=== PATIENT | female | born 1965 | race Caucasian/White ===

== ENCOUNTER 2023-09-29 20:04 | Emergency (ER) | payer MEDICAID, OTHER ==
[~2023-09-29] VITALS: Ht 165.1 cm; Wt 90.3 kg
[2023-09-29 20:52] LABS: BASO # 0.1 10^3/uL (0.0-0.2); BASO % 0.3 % (0.0-1.0); HEMATOCRIT 49.4 % (36.0-47.0); HEMOGLOBIN 16.5 g/dl (12.0-15.5); LYMPH # 0.9 10^3/uL (1.5-5.0); LYMPH % 3.5 % (24.0-44.0); MEAN CORPUSCULAR HEMOGLOBIN 31.4 pg (27.0-33.0); MEAN CORPUSCULAR HGB CONC 33.4 g/dl (32.0-36.5); MEAN CORPUSCULAR VOLUME 94.1 fl (80.0-96.0); MONO # 1.4 10^3/uL (0.0-0.8); NEUTROPHILS # 24.5 10^3/uL (1.5-8.5); NEUTROPHILS % 90.2 % (36.0-66.0); PLATELET COUNT, AUTOMATED 317 10^3/uL (150-450); RED BLOOD COUNT 5.25 10^6/uL (4.00-5.40); WHITE BLOOD COUNT 27.1 10^3/uL (4.0-10.0)
[2023-09-29 21:44] LABS: ABG BASE EXCESS -20.8 (-2.0-2.0); ABG HCO3 4.7 MMOL/L (22.0-26.0); ABG PARTIAL PRESSURE O2 170.6 mmHg (75.0-100.0); ABG STANDARD HCO3 10.3 MMOL/L. (22.0-26.0); ABG TOTAL CO2 5.1 MMOL/L (22.0-29.0)
[2023-09-29 21:44] LABS: INR 1.46; PARTIAL THROMBOPLASTIN TIME 23.2 SECONDS (24.8-34.2); PROTHROMBIN TIME 17.3 SECONDS (12.5-14.5)
[2023-09-29 21:47] LABS: ABG PARTIAL PRESSURE CO2 13.2 mmHg (35.0-45.0); ABG pH (ARTERIAL) 7.171 UNITS (7.350-7.450)
[2023-09-29] MEDS ORDERED: ISOVUE-370 76% 100ML VIAL As Ordered ONE (22:04)
[2023-09-29 22:25] LABS: CK-MB VALUE MASS 3.5 NG/ML (<3.6)
[2023-09-29 22:26] LABS: CPK CREATINE PHOSPHOKINASE 165 U/L (34-145); MB/CK RELATIVE INDEX 2.12 (< OR =4)
[2023-09-29 22:33] LABS: PROCALCITONIN 0.35 ng/ml
[2023-09-29 22:43] LABS: ALBUMIN 2.8 G/DL (3.2-5.2); ALKALINE PHOSPHATASE 112 U/L (46-116); ALT/SGPT 12 U/L (7.0-40); AST/SGOT < 8 U/L (<34); BILIRUBIN,DIRECT 0.2 MG/DL (<0.4); BILIRUBIN,TOTAL 0.6 MG/DL (0.3-1.2); BLOOD UREA NITROGEN 39 MG/DL (9-23); CALCIUM LEVEL 9.7 MG/DL (8.5-10.1); CARBON DIOXIDE LEVEL < 10.0 MMOL/L (20-31); CHLORIDE LEVEL 91 MMOL/L (98-107); CREATININE FOR GFR 1.06 MG/DL (0.55-1.30); GLOMERULAR FILTRATION RATE 56.5 (>51); GLUCOSE, FASTING 627 MG/DL (60-100); POTASSIUM SERUM 4.8 MMOL/L (3.5-5.1); SODIUM LEVEL 126 MMOL/L (136-145); TOTAL PROTEIN 7.8 G/DL (5.7-8.2)
[2023-09-29] MEDS ORDERED: HEPARIN SOD (PORCINE) 5000UNITS/ML 1ML VIAL/SYRINGE IV PRN (22:50)
[2023-09-29] MEDS: cefTRIAXone SOD 2 GM in D5W MINI-BAG PLUS 50 ML IV ONE (23:17)
[2023-09-29] MEDS: NS 1,000 ML IV ONE (23:17)
[2023-09-29] MEDS: HumuLIN R (REGULAR) INSULIN (NovoLIN R) **100U/ML** PER UNIT IV ONE (23:21)
[2023-09-29] MEDS: HEPARIN SOD (PORCINE) 5000UNITS/ML 1ML VIAL/SYRINGE IV ONE (23:28)
[2023-09-29] MEDS: HEPARIN DRIP 25,000 UNITS in IV 1 EA IV SCH (23:32)
[2023-09-29] MEDS ORDERED: INSULIN IV RATE CHANGE DOCUMENTATION ML/HR XX SCH (23:35)
[2023-09-29 23:50] LABS: CK-MB VALUE MASS 4.6 NG/ML (<3.6)
[2023-09-30 00:01] LABS: MB/CK RELATIVE INDEX 2.38 (< OR =4)
[2023-09-30] MEDS: INSULIN REGULAR IN 0.9 % NACL 100 UNIT in IV 1 EA IV SCH (00:08)
[2023-09-30 01:45] LABS: VENOUS BASE EXCESS -17.9 (-2.0-2.0); VENOUS HCO3 9.5 MMOL/L (23.0-27.0); VENOUS O2 SATURATION 73.8 % (60.0-80.0); VENOUS PARTIAL PRESSURE CO2 27.9 mmHg (38.0-50.0); VENOUS PARTIAL PRESSURE O2 42.3 mmHg (30.0-50.0); VENOUS PH 7.149 UNITS (7.330-7.430); VENOUS STANDARD HCO3 11.2 MMOL/L; VENOUS TOTAL CO2 10.3 MMOL/L (24.0-28.0)
[2023-09-30 03:02] LABS: BLOOD UREA NITROGEN 38 MG/DL (9-23); CALCIUM LEVEL 8.9 MG/DL (8.5-10.1); CARBON DIOXIDE LEVEL < 10.0 MMOL/L (20-31); CHLORIDE LEVEL 98 MMOL/L (98-107); CREATININE FOR GFR 0.93 MG/DL (0.55-1.30); GLOMERULAR FILTRATION RATE > 60.0 (>51); GLUCOSE, FASTING 285 MG/DL (60-100); POTASSIUM SERUM 3.3 MMOL/L (3.5-5.1); SODIUM LEVEL 130 MMOL/L (136-145)
[2023-09-30] MEDS ORDERED: KCL 20MEQ in NS 1000ML 1,000 ML IV SCH (03:30)
[2023-09-30] MEDS ORDERED: POTASSIUM CHLORIDE INJ 20 MEQ in NS 1,000 ML IV SCH (03:30)
[2023-09-30] MEDS: POTASSIUM CHLORIDE 10MEQ SR TABLET PO ONE (04:06)
[2023-09-30 04:09] LABS: VENOUS BASE EXCESS -12.3 (-2.0-2.0); VENOUS HCO3 13.6 MMOL/L (23.0-27.0); VENOUS O2 SATURATION 77.1 % (60.0-80.0); VENOUS PARTIAL PRESSURE O2 41.1 mmHg (30.0-50.0); VENOUS PH 7.247 UNITS (7.330-7.430); VENOUS STANDARD HCO3 14.7 MMOL/L; VENOUS TOTAL CO2 14.6 MMOL/L (24.0-28.0)
[2023-09-30 04:38] LABS: BLOOD UREA NITROGEN 39 MG/DL (9-23); CALCIUM LEVEL 9.1 MG/DL (8.5-10.1); CARBON DIOXIDE LEVEL 15 MMOL/L (20-31); CHLORIDE LEVEL 101 MMOL/L (98-107); CREATININE FOR GFR 0.89 MG/DL (0.55-1.30); GLOMERULAR FILTRATION RATE > 60.0 (>51); GLUCOSE, FASTING 189 MG/DL (60-100); POTASSIUM SERUM 3.5 MMOL/L (3.5-5.1); SODIUM LEVEL 132 MMOL/L (136-145)
[2023-09-30] MEDS: KCL 20MEQ IN D5/0.45NS 1000ML 1,000 ML IV SCH (05:04)
[2023-09-30 05:45] LABS: VENOUS O2 SATURATION 73.4 % (60.0-80.0); VENOUS PARTIAL PRESSURE CO2 35.8 mmHg (38.0-50.0); VENOUS PARTIAL PRESSURE O2 37.3 mmHg (30.0-50.0); VENOUS PH 7.267 UNITS (7.330-7.430); VENOUS STANDARD HCO3 16.2 MMOL/L; VENOUS TOTAL CO2 17.1 MMOL/L (24.0-28.0)
[2023-09-30 06:20] LABS: BLOOD UREA NITROGEN 40 MG/DL (9-23); CARBON DIOXIDE LEVEL 16 MMOL/L (20-31); CHLORIDE LEVEL 104 MMOL/L (98-107); CREATININE FOR GFR 0.85 MG/DL (0.55-1.30); GLOMERULAR FILTRATION RATE > 60.0 (>51); GLUCOSE, FASTING 143 MG/DL (60-100); POTASSIUM SERUM 3.3 MMOL/L (3.5-5.1); SODIUM LEVEL 135 MMOL/L (136-145)
[2023-09-30] MEDS: LEVEMIR (INSULIN DETEMIR) 1 UNITS/0.01ML SC ONE (07:16)
[2023-09-30] MEDS: NS 1,000 ML IV SCH (09:26)
[2023-09-30 13:10] VITALS: BP 149/65; TEMP 97.9; O2SAT 99
== END 2023-09-30 13:14 | disposition short-term general hospital (02) ==
LOC: EDBD 20:04 → M ED 20:04
DX: E11.10 Type 2 diabetes mellitus with ketoacidosis without coma (principal); I99.8 Other disorder of circulatory system; I10 Essential (primary) hypertension; R94.31 Abnormal electrocardiogram [ECG] [EKG]; Z88.8 Allergy status to other drugs, medicaments and biological substances
CPT/HCPCS: 36600; 71045; 71275; 75635; 80047; 80048; 80076; 82550; 82553; 82803; 83605; 84145; 84484; 85025; 85610; 85652; 85730; 86140; 87040; 87077; 87186; 87635; 93005; 93041; 94760; 96365; 96366; 96372; 96374; 96375; 99285; J0696; J1815; Q9967